=== PATIENT | female | born 1980 | race Caucasian/White ===

== ENCOUNTER 2017-10-05 16:59 | Emergency (ER) | payer MEDICAID, MEDICARE ==
--- NOTE | 2017-10-05 17:18 | EDM.PDOC ---
ED HPI GENERAL MEDICAL PROBLEM - General Chief Complaint: Chest Pain Stated Complaint: CHEST PAIN Time Seen by Provider: 10/05/17 17:17 Source of Information: Reports: Patient History Limitations: Reports: No Limitations - History of Present Illness INITIAL COMMENTS - FREE TEXT/NARRATIVE: 37-year-old female presents to the ED with a 3 day history of central chest discomfort that seems to start in the pit of her stomach her epigastrium and radiated up into her throat feels this into her back as well. Pain is felt along the left and right costal margins anteriorly and radiates around to the back. He has had previous cholecystectomy. She states that initiating swallowing seems to hurt or eating seems to make the pain worse. He has no history of gastroesophageal reflux disease and is never uses Tums or Rolaids. Pain seems to been worse since starting an increased dose of her antidepressant medication--Pristiq ER. Recently this medication was increased from 50-100 mg extended release once daily at bedtime. She is also on amitriptyline 50 mg at bedtime. Both of these medications are known to decreased lower esophageal sphincter tone and can contribute to reflux disease. Patient is also on oral control. This patient at risk of potential thrombosis. She denies any leg pain. No recent long travel history. Patient has a history of asthma but never bad enough to need an inhaler. She denies cough or sputum production. No associated fever or chills. Her blood pressure is elevated with a diastolic of 105. The side effects of Pristiq is potential hypertension. Apparently her blood pressures been elevated for a significant period time but has not ever been addressed or treated. Pain is worsened by deep breathing. At present can't get a full deep breath. Onset: Gradual Onset Date: 10/02/17 Duration: Day(s):, Getting Worse Location: Reports: Chest (Feels a heaviness in her chest that seems to start in the pit of her stomach and radial into her neck and through to her mid back. Pain along both anterior costal margins into her back.) Quality: Reports: Pressure Severity: Moderate (Rates her current pain as a 7 out of 10.) Improves with: Reports: None Worsens with: Reports: Other (Deep breathing), Movement Context: Denies: Activity, Exercise, Sick Contact, Trauma, Other Associated Symptoms: Reports: Chest Pain, Loss of Appetite, Shortness of Breath. Denies: Confusion, Cough, cough w sputum (See history present illness) , Diaphoresis, Fever/Chills, Headaches, Malaise, Nausea/Vomiting, Rash, Seizure , Syncope, Weakness Treatments [employer]: Reports: Other (see below) (Only medications that she has been prescribed.) Chest Pain Score (Numeric/FACES): 7 - Related Data Allergies Allergy/AdvReac Type Severity Reaction Status Date / Time acetaminophen [From Vicodin] Allergy Hives Verified 10/05/17 17:11 hydrocodone [From Vicodin] Allergy Hives Verified 10/05/17 17:11 Sulfa (Sulfonamide Allergy Hives Verified 10/05/17 17:11 Antibiotics) Home Meds: Home Meds Amitriptyline [Elavil] 50 mg PO BEDTIME 10/05/17 [History] Desvenlafaxine [Desvenlafaxine ER] 100 mg PO BEDTIME 10/05/17 [History] Dicyclomine [Bentyl] 20 mg PO Q6H PRN #16 tablet 10/05/17 [Rx] Levomefolate Calcium [l-Methylfolate] 15 mg PO DAILY 10/05/17 [History] Omeprazole 20 mg PO BEDTIME #30 cap.sr 10/05/17 [Rx] Topiramate 25 mg PO BEDTIME 10/05/17 [History] Past Medical History Respiratory History: Reports: Asthma (Although not bad enough to ever need an inhaler for.) Psychiatric History: Reports: Depression, Other (See Below) (Insomnia) Endocrine/Metabolic History: Reports: Obesity/BMI 30+ - Past Surgical History GI Surgical History: Reports: Cholecystectomy (Done laparoscopically.) Social & Family History - Living Situation & Occupation Occupation: Unemployed [facility] - Review of Systems Review Of Systems: See Below Constitutional: Reports: Malaise, Weakness, Fatigue, Decreased Appetite. Denies : Fever, Chills, Weight Loss HEENT: Reports: No Symptoms Respiratory: Reports: Shortness of Breath. Denies: Wheezing, Pleuritic Chest Pain, Cough, Sputum, Hemoptysis Cardiovascular: Reports: Chest Pain, Blood Pressure Problem (As described in history of present illness depression has been notably elevated in the last several visits to the doctor but she has not been placed on medication yet.), Dyspnea on Exertion. Denies: Claudication, Edema, Lightheadedness, Orthopnea, Palpitations Endocrine: Reports: Fatigue GI/Abdominal: Reports: Abdominal Pain, Constipation, Difficulty Swallowing. Denies: Black Stool (Some pressure in the pit of her stomach and some odynophagia the last 2-3 days.), Bloody Stool, Diarrhea, Decreased Appetite, Distension, Flatus (Due to medication side effects), Hematemesis, Hematochezia, Melena, Other : Reports: No Symptoms Musculoskeletal: Reports: Back Pain (Chest pain radiates through to her mid back.) Skin: Reports: No Symptoms Neurological: Reports: No Symptoms Psychiatric: Reports: Depression, Mood Lability. Denies: Hallucinations, Homicidal Ideation, Suicidal Ideation Hematologic/Lymphatic: Reports: No Symptoms Immunologic: Reports: No Symptoms ED EXAM, GENERAL - Physical Exam Exam: See Below Exam Limited By: No Limitations General Appearance: Alert, WD/WN, Anxious (Mildly anxious.), Mild Distress Eye Exam: Bilateral Eye: Normal Fundi Throat/Mouth: Normal Inspection, Normal Oropharynx Head: Atraumatic, Normocephalic Neck: Normal Inspection, Supple, Non-Tender, Full Range of Motion. No: Carotid Bruit, Lymphadenopathy (L), Lymphadenopathy (R), Thyromegaly Respiratory/Chest: Normal Breath Sounds (Splinting respirations.), Respiratory Distress (Tachypnea at rest 26-30/m.), Decreased Breath Sounds (Breath sounds are diminished both lower lung orozco posteriorly due to size.), Splinting, Other (Does have chest wall pain particularly ribs 3 and 4 in the right side midclavicular line ribs 34 and 5 on the left side midclavicular line.). No: Rales, Rhonchi, Wheezing Cardiovascular: Normal Peripheral Pulses, Regular Rate, Rhythm, No Edema, No Gallop, No Murmur, No Rub Peripheral Pulses: 3+: Posterior Tibial (L), Posterior Tibial (R), Dorsalis Pedis (L), Dorsalis Pedis (R) GI/Abdominal: Normal Bowel Sounds, Soft, Non-Tender, No Organomegaly, No Distention Back Exam: Normal Inspection, Full Range of Motion. No: CVA Tenderness (L), CVA Tenderness (R) Extremities: Normal Inspection, Normal Range of Motion, Non-Tender, No Pedal Edema, Other (Calves are nontender and flexible. No evidence clinically of DVT.) Neurological: Alert, Oriented, CN II-XII Intact, Normal Cognition Psychiatric: Anxious (Mildly anxious.), Flat Affect (Slightly flat affect.) Skin Exam: Warm, Dry, Intact, Normal Color, No Rash EKG INTERPRETATION EKG Date: 10/05/17 Time: 17:10 Rhythm: NSR Rate (Beats/Min): 90 [place]: RAD-Right [place] Deviation (Mild right ex deviation 93.) P-Wave: Present QRS: Normal ST-T: Normal QT: Normal EKG Interpretation Comments: Essentially normal ECG no signs of ischemia Course - Vital Signs Last Recorded V/S: Last Vital Signs Temp 36.7 C 10/05/17 17:00 Pulse 90 10/05/17 18:01 Resp 17 10/05/17 18:01 BP 157/105 H 10/05/17 18:01 Pulse Ox 98 10/05/17 18:01 - Orders/Labs/Meds Orders: Active Orders 24 hr Category Date Time Status EKG Documentation Completion [RC] STAT Care 10/05/17 17:24 Active Chest 1V Frontal [CR] Stat Exams 10/05/17 17:24 Taken Sodium Chloride 0.9% [Normal Saline] 1,000 ml Med 10/05/17 17:30 Active IV ASDIRECTED Medication Orders Sodium Chloride (Normal Saline) 1,000 mls @ 100 mls/hr IV ASDIRECTED VINEET Last Admin: 10/05/17 17:43 Dose: 100 mls/hr Labs: Laboratory Tests 10/05/17 10/05/17 10/05/17 Range/Units 17:35 17:35 17:35 WBC 11.06 H (3.98-10.04) K/mm3 RBC 4.72 (3.98-5.22) M/mm3 Hgb 13.8 (11.2-15.7) gm/L Hct 41.3 (34.1-44.9) % MCV 87.5 (79.4-94.8) fl MCH 29.2 (25.6-32.2) pg MCHC 33.4 (32.2-35.5) g/dl RDW Std Deviation 41.9 (36.4-46.3) fL Plt Count 278 (182-369) K/mm3 MPV 9.1 L (9.4-12.3) fl Neutrophils % (Manual) 61 H (40-60) % Band Neutrophils % 0 (0-10) % Lymphocytes % (Manual) 32 (20-40) % Atypical Lymphs % 0 % Monocytes % (Manual) 4 (2-10) % Eosinophils % (Manual) 3 (0.7-5.8) % Basophils % (Manual) 0 L (0.1-1.2) Platelet Estimate Adequate Plt Morphology Comment Normal RBC Morph Comment Normal D-Dimer, Quantitative 0.36 (0.19-0.50) mg/L Sodium 139 (136-145) mEq/L Potassium 3.8 (3.5-5.1) mEq/L Chloride 103 (98-107) mEq/L Carbon Dioxide 27 (21-32) mEq/L Anion Gap 12.8 (5-15) BUN 12 (7-18) mg/dL Creatinine 0.8 (0.55-1.02) mg/dL Est Cr Clr Drug Dosing 95.45 mL/min Estimated GFR (MDRD) > 60 (>60) mL/min BUN/Creatinine Ratio 15.0 (14-18) Glucose 108 H (74-106) mg/dL Calcium 9.2 (8.5-10.1) mg/dL Total Bilirubin 0.2 (0.2-1.0) mg/dL AST 10 L (15-37) U/L ALT 29 (14-59) U/L Alkaline Phosphatase 94 (46-116) U/L CK-MB (CK-2) 0.8 (0-3.6) ng/ml Troponin I < 0.017 (0.00-0.056) ng/mL C-Reactive Protein (<1.0) mg/dL Total Protein 7.2 (6.4-8.2) g/dl Albumin 3.4 (3.4-5.0) g/dl Globulin 3.8 gm/dL Albumin/Globulin Ratio 0.9 L (1-2) Lipase (73-393) U/L 10/05/17 Range/Units 17:35 WBC (3.98-10.04) K/mm3 RBC (3.98-5.22) M/mm3 Hgb (11.2-15.7) gm/L Hct (34.1-44.9) % MCV (79.4-94.8) fl MCH (25.6-32.2) pg MCHC (32.2-35.5) g/dl RDW Std Deviation (36.4-46.3) fL Plt Count (182-369) K/mm3 MPV (9.4-12.3) fl Neutrophils % (Manual) (40-60) % Band Neutrophils % (0-10) % Lymphocytes % (Manual) (20-40) % Atypical Lymphs % % Monocytes % (Manual) (2-10) % Eosinophils % (Manual) (0.7-5.8) % Basophils % (Manual) (0.1-1.2) Platelet Estimate Plt Morphology Comment RBC Morph Comment D-Dimer, Quantitative (0.19-0.50) mg/L Sodium (136-145) mEq/L Potassium (3.5-5.1) mEq/L Chloride (98-107) mEq/L Carbon Dioxide (21-32) mEq/L Anion Gap (5-15) BUN (7-18) mg/dL Creatinine (0.55-1.02) mg/dL Est Cr Clr Drug Dosing mL/min Estimated GFR (MDRD) (>60) mL/min BUN/Creatinine Ratio (14-18) Glucose (74-106) mg/dL Calcium (8.5-10.1) mg/dL Total Bilirubin (0.2-1.0) mg/dL AST (15-37) U/L ALT (14-59) U/L Alkaline Phosphatase (46-116) U/L CK-MB (CK-2) (0-3.6) ng/ml Troponin I (0.00-0.056) ng/mL C-Reactive Protein 0.4 (<1.0) mg/dL Total Protein (6.4-8.2) g/dl Albumin (3.4-5.0) g/dl Globulin gm/dL Albumin/Globulin Ratio (1-2) Lipase 123 (73-393) U/L Meds: Medications Generic Name Dose Route Start Last Admin Trade Name Freq PRN Reason Stop Dose Admin Sodium Chloride 1,000 mls @ 100 mls/hr 10/05/17 17:30 10/05/17 17:43 Normal Saline IV 100 mls/hr ASDIRECTED VINEET Administration Discontinued Medications Generic Name Dose Route Start Last Admin Trade Name Freq PRN Reason Stop Dose Admin Al Hydroxide/Mg Hydroxide 30 0 ml 10/05/17 17:27 10/05/17 17:44 ml/ Lidocaine HCl 15 ml PO 10/05/17 17:28 45 ml ONETIME ONE Administration Diphenhydramine HCl 25 mg 10/05/17 17:51 10/05/17 17:56 Benadryl IVPUSH 10/05/17 17:52 25 mg ONETIME ONE Administration Hydromorphone HCl 0.5 mg 10/05/17 18:40 10/05/17 18:45 Dilaudid IVPUSH 10/05/17 18:41 0.5 mg ONETIME ONE Administration Hyoscyamine 0.125 mg 10/05/17 17:27 10/05/17 17:47 Hyomax-Sl SL 10/05/17 17:28 0.125 mg ONETIME ONE Administration Lorazepam 1 mg 10/05/17 17:51 10/05/17 17:58 Ativan IVPUSH 10/05/17 17:52 1 mg ONETIME ONE Administration Ondansetron HCl 4 mg 10/05/17 18:40 10/05/17 18:50 Zofran IVPUSH 10/05/17 18:41 4 mg ONETIME ONE Administration - Radiology Interpretation Free Text/Narrative:: 37-year-old female presents to the ED with a three-day history of central chest pressure discomfort which makes it hard to swallow and hard to fully take a deep breath. Pain seems to start in the epigastrium radiating up through to her throat and neck. It also radiates through to the back. She feels along both anterior costal margins and her back. This would be strongly suggestive of hiatal hernia caused pain. She is not aware of any gastroesophageal reflux never has to use Tums or Rolaids. Several rib medications however would relax the lower esophageal sphincter contributed to free reflux even though she may not be aware of it. She does have a component of odynophagia --recognizes that eating seems to make the pain somewhat worse. Does have bilateral chest wall pain midclavicular line ribs 3 and 4 and 5 on the left ribs 3 and 4 on the right on palpation. Has had a previous cholecystectomy. Does not smoke cigarettes. ECG shows negative normal sinus rhythm at 90/m with no signs of ischemia. There is a borderline right axis deviation 93. I will start with a left-sided under the tongue to see if this relieves her discomfort. After that she will have a GI cocktail and then we will reassess. IV will be started at 100 mils per hour. Normal saline. Routine labs including a d-dimer and troponin CK-MB fraction will be obtained. Also serum lipase. Strongly suspect that her current chest pain is likely GI in origin i.e. either esophageal or hiatal hernia related. One view chest x-ray will be obtained. - Re-Assessments/Exams Free Text/Narrative Re-Assessment/Exam: 10/05/17 17:52 patient feels that her throat is closing up and not after the GI cocktail. He is increasingly showing more signs of anxiety. Will give Benadryl 25 mg IV with Ativan 1 mg IV. A pressure remains elevated at 157/105. Heart remains 90 in sinus. 10/05/17 18:13 one view portable chest x-ray is been completed. Cardiac silhouette is normal. Does seem to be some prominence of the right perihilar area and a slight streaky infiltrate right lower lobe. No other chest x-rays for comparison purposes. 10/05/17 18:36 Labs are back. Total white count is slightly elevated at 11.06 with 61% neutrophils and no bands reported. Hemoglobin is 13.8 with hematocrit of 41.3. MCV is normal at 87.5. Platelets are normal 278,000. D-dimer is 0.36 well within normal limits. Sodium is 139 with a potassium of 3.8. Chloride is 103 with a bicarbonate of 27. Anion gap is normal at 12.8. BUNs 12 with a creatinine of 0.8. Liver function is normal. Lipase normal at 123. Troponin I is less than 0.017 with a CK-MB fraction 0.8. No evidence of heart related illness. Reexamined the patient as she did get temporary relief of the pain after the GI cocktail but she felt quite awkward in her ability to talk and swallow as it numbed up her voice box and hypopharynx. Pain is still quite significant in her anterior chest wall particularly ribs 34 on the right side. She indicates that every time she eats pain seems to radiate along the right costal margin into her right chest and back. Pain is also retrosternal. She recognizes it seems to worsen with eating. These are all signs and symptoms of likely hiatal hernia. Associated with bilateral chest wall pain. This makes it hard to treat as her chest wall is inflamed fairly significantly on palpation. NSAIDs which are usually used to treat this may make her reflux and hiatal hernia pain worse. Going to try a small dose of Dilaudid to see if it alleviates her chest wall pain and hiatal hernia pain. Also give Zofran 4 mg IV to prevent any nausea or vomiting from the Dilaudid. 10/05/17 19:02 did get some relief of the chest pain and able to take a deeper breath after Dilaudid 0.5 mg IV. BP is markedly improved to 118/62 with a heart rate of 66. This suggests that the initial hypertension we scene was anxiety related. She is much less anxious now than she was on upon arrival especially learning that nothing serious was identified on investigation. Still strongly suspect she has a hiatal hernia. He often awakens during the night with chest discomfort or abdominal discomfort. We discussed a diet that would include no soda pop to avoid carbon dioxide aggravating hiatal hernia and gas-forming foods such as onions, cauliflower, cucumbers, broccoli etc. I'm going to place her on Bentyl 20 mg every 6 hours until this pain abates. Also I will place her on Prilosec 20 mg once daily at bedtime at least for a month as I suspect she is refluxing without symptoms. If symptoms persist she's going to need follow- up in terms of upper GI endoscopy to identify if she has a significant hiatal hernia. Stress use of her bra which is under wire bra is likely contributing to chest wall pain bilaterally. Did double sports positive available to her to provide support without any pressure on her chest wall. Recommended either Aleve 2 tablets every 8 hours or ibuprofen 600 mg every 6 hours needed for relief of chest wall pain. Departure - Departure Time of Disposition: 19:05 Disposition: Home, Self-Care 01 Condition: Fair Clinical Impression: Anterior chest wall pain, Chest pain, central, Non-cardiac chest pain, Hiatal hernia Prescriptions: Dicyclomine [Bentyl] 20 mg PO Q6H PRN #16 tablet PRN Reason: Abdominal cramps/diarrhea Omeprazole 20 mg PO BEDTIME #30 cap.sr Referrals: PCP,None [Primary Care Provider] - Forms: ED Department Discharge Additional Instructions: Evaluation in the emergency department in regards to central chest pain radiating up into her throat as well as bilateral chest wall pain identified to be involving ribs 3 and 4 on the right and 34 and 5 on the left side of your chest. As you discussed the pain is in the distribution of your bra. The chest wall pain is due to inflammation of the lining around the ribs. It may simply be due to the brassiere itself or the heaviness of breasts pulling down on the chest wall., But you also have central chest discomfort which made it difficult for take a full deep breath that radiates into her back. This 6 characteristic of hiatal hernia type pain where your stomach is slipping up into your chest stretching the opening where the food pipe posterior the diaphragm to your abdomen. I believe this is causing the majority of your current central chest discomfort with associated chest wall discomfort. You did receive initial improvement with upper GI cocktail but it gave you a sense of suffocation and throat closure. This is due to the numbing effect of the medication. This provided transient relief of your chest discomfort which suggested that it is indeed the food pipe and stomach that is creating the central chest discomfort. All of the investigations from through the ED today were normal. There is no evidence of any heart related illness and no blood clots in the lung. Also in the abdomen the liver function was normal pancreas is normal with no inflammation identified. You're treated with a small dose of Dilaudid 0.5 mg with Zofran 4 mg to relieve chest wall pain and also should help relax the juncture of the food pipe and stomach. Treatment at home is nothing to eat much for at least 3 hours before bed or lying down. Suggest use of omeprazole 20 mg every night at bedtime for the next 30 days to reduce the acid in your stomach and prevent reflux of acid during the night when you're sleeping which you may not be aware of that may be aggravating her irritating the lining of the food pipe causing spasm. May use Bentyl 20 mg every 6 hours needed for relief of the central chest pain until it's gone and then use it only as needed for recurrence of from similar type pain. In regards to the chest wall pain I would suggest Aleve 2 tablets every 8 hours or ibuprofen 600 mg every 6 hours to relieve pain and inflammation for the next week or so. As we discussed avoiding soda pop due to carbon dioxide which causes the stomach to be more likely to herniated up into the chest cavity. Also gas-forming foods such as cauliflower, broccoli, onions, cucumbers, and radishes. You can still have these vegetables but in small quantities at a time so as not to aggravate extra gas formation of the stomach. If symptoms persist then I would suggest follow-up with a upper GI specialist such as Dr. Perea at [facility] in [facility]. He specializes in hiatal hernia repair and stomach surgery - My Orders Last 24 Hours: My Active Orders 10/05/17 17:24 EKG Documentation Completion [RC] STAT Chest 1V Frontal [CR] Stat 10/05/17 17:30 Sodium Chloride 0.9% [Normal Saline] 1,000 ml IV ASDIRECTED - Assessment/Plan Last 24 Hours: My Active Orders 10/05/17 17:24 EKG Documentation Completion [RC] STAT Chest 1V Frontal [CR] Stat 10/05/17 17:30 Sodium Chloride 0.9% [Normal Saline] 1,000 ml IV ASDIRECTED
[2017-10-05] MEDS ORDERED: Hyoscyamine 0.125 MG Tab.SL SL ONE (17:27)
[2017-10-05] MEDS ORDERED: Alum Hydrox/Mag Hydrox/Simeth 30 ML, Lidocaine 2% 15 ML PO ONE ×2 (17:27)
[2017-10-05] MEDS ORDERED: Sodium Chloride 0.9% 1,000 ML IV SCH (17:30)
[2017-10-05] MEDS ORDERED: LORazepam 2 MG/ML SDV IVPUSH ONE (17:51)
[2017-10-05] MEDS ORDERED: diphenhydrAMINE 50 MG/ML SDV IVPUSH ONE (17:51)
[2017-10-05] MEDS ORDERED: Ondansetron 4 MG/2 ML SDV IVPUSH ONE (18:40)
[2017-10-05] MEDS ORDERED: HYDROmorphone 0.5 MG/0.5 ML SYRINGE IVPUSH ONE (18:40)
--- NOTE | 2017-10-06 14:26 | CR ---
Chest: Portable view of the chest was obtained. Comparison: No prior chest x-ray. Heart size and mediastinum are normal. Lungs are clear. Bony structures are grossly intact. Impression: 1. Nothing acute is identified on portable chest x-ray. Diagnostic code #1
== END 2017-10-05 19:36 | disposition home or self-care (01) ==
LOC: JD.ED 16:59
DX: K44.9 Diaphragmatic hernia without obstruction or gangrene (principal); J45.909 Unspecified asthma, uncomplicated; F32.9 Major depressive disorder, single episode, unspecified; E66.9 Obesity, unspecified; Z88.2 Allergy status to sulfonamides; Z88.5 Allergy status to narcotic agent; Z79.899 Other long term (current) drug therapy; Z88.6 Allergy status to analgesic agent; Z68.36 Body mass index [BMI] 36.0-36.9, adult
CPT/HCPCS: 36415; 71045; 80053; 82553; 83690; 84484; 85025; 85379; 86140; 93005; 96361; 96374; 96375; 99285; A9270; J1170; J1200; J2060; J2405; J7040; 93010; 99284-25

== ENCOUNTER 2018-02-07 20:31 | Emergency (ER) | payer MEDICARE, MEDICAID ==
[2018-02-07] MEDS ORDERED: Acetaminophen 325 MG Tab PO ONE (22:25)
[2018-02-07] MEDS ORDERED: traMADol 50 MG Tab PO ONE (23:17)
--- NOTE | 2018-02-07 23:56 | EDM.PDOC ---
ED HPI GENERAL MEDICAL PROBLEM - General Chief Complaint: Chest Pain Stated Complaint: CHEST PAINS Time Seen by Provider: 02/07/18 21:05 - History of Present Illness INITIAL COMMENTS - FREE TEXT/NARRATIVE: see dictated documentation Treatments HARDWARE TRAINER: Reports: Other (see below) Other Treatments HARDWARE TRAINER: prilosec Middle Chest Pain Score (Numeric/FACES): 6 - Related Data Allergies Allergy/AdvReac Type Severity Reaction Status Date / Time acetaminophen [From Vicodin] Allergy Hives Verified 10/05/17 17:11 hydrocodone [From Vicodin] Allergy Hives Verified 10/05/17 17:11 Sulfa (Sulfonamide Allergy Hives Verified 10/05/17 17:11 Antibiotics) Home Meds: Home Meds Amitriptyline [Elavil] 75 mg PO BEDTIME 02/07/18 [History] Dextroamphetamine/Amphetamine [Adderall] 20 mg PO DAILY 02/07/18 [History] Divalproex Sodium [Depakote] 250 mg PO BID 02/07/18 [History] Folic Acid 15 mg PO DAILY 02/07/18 [History] Omeprazole Magnesium [Prilosec Otc] 20 mg PO DAILY 02/07/18 [History] Topiramate 100 mg PO BEDTIME 02/07/18 [History] Past Medical History HEENT History: Reports: Impaired Vision Other HEENT History: wears eyeglasses Cardiovascular History: Reports: Hypertension Respiratory History: Reports: Asthma Gastrointestinal History: Reports: Hiatal Hernia PICKER TENDER History: Reports: Neurological History: Reports: Concussion Psychiatric History: Reports: Depression, Other (See Below) Endocrine/Metabolic History: Reports: Obesity/BMI 30+ Oncologic (Cancer) History: Reports: Other (See Below) Other Oncologic History: states had "pre-cervical" cancer. - Infectious Disease History Infectious Disease History: Reports: Chicken Pox - Past Surgical History GI Surgical History: Reports: Cholecystectomy Female Surgical History: Reports: Tubal Ligation Social & Family History - Tobacco Use Smoking Status *Q: Current Every Day Smoker Years of Tobacco use: 18 Packs/Tins Daily: 0.2 - Caffeine Use Caffeine Use: Reports: None - Recreational Drug Use Recreational Drug Use: No - Living Situation & Occupation Occupation: Unemployed ED ROS GENERAL - Review of Systems Review Of Systems: ROS reveals no pertinent complaints other than HPI. ED EXAM, GI/ABD - Physical Exam Exam: See Below Course - Vital Signs Last Recorded V/S: Last Vital Signs Temp 36.7 C 02/07/18 20:52 Pulse 97 02/07/18 20:52 Resp 20 02/07/18 20:52 BP 140/84 02/07/18 20:52 Pulse Ox 96 02/07/18 20:52 - Orders/Labs/Meds Orders: Active Orders 24 hr Category Date Time Status EKG Documentation Completion [RC] ASDIRECTED Care 02/07/18 22:18 Active CXR [Chest 2V] [CR] Stat Exams 02/07/18 22:17 Taken EKG 12 Lead [EK] Stat Ther 02/07/18 22:18 Ordered Labs: Laboratory Tests 02/07/18 Range/Units 22:30 Troponin I < 0.017 (0.00-0.056) ng/mL Meds: Medications Discontinued Medications Generic Name Dose Route Start Last Admin Trade Name Freq PRN Reason Stop Dose Admin Acetaminophen 975 mg 02/07/18 22:25 02/07/18 22:34 Tylenol PO 02/07/18 22:26 975 mg NOW ONE Administration Tramadol HCl 50 mg 02/07/18 23:17 02/07/18 23:44 Ultram PO 02/07/18 23:18 50 mg ONETIME ONE Administration Departure - Departure Time of Disposition: 23:54 Disposition: Home, Self-Care 01 Clinical Impression: GERD (gastroesophageal reflux disease) Qualifiers: Esophagitis presence: esophagitis presence not specified Qualified Code(s): K21.9 - Gastro-esophageal reflux disease without esophagitis - Discharge Information *PRESCRIPTION DRUG MONITORING PROGRAM REVIEWED*: Not Applicable *COPY OF PRESCRIPTION DRUG MONITORING REPORT IN PATIENT JENNIFER: Not Applicable Instructions: Food Choices for Gastroesophageal Reflux Disease, Adult Referrals: Laurence Vargas ORIENTOR [Primary Care Provider] - Additional Instructions: Followup with your provider regarding reflux and hiatal hernia. - My Orders Last 24 Hours: My Active Orders 02/07/18 22:17 CXR [Chest 2V] [CR] Stat 02/07/18 22:18 EKG Documentation Completion [RC] ASDIRECTED EKG 12 Lead [EK] Stat - Assessment/Plan Last 24 Hours: My Active Orders 02/07/18 22:17 CXR [Chest 2V] [CR] Stat 02/07/18 22:18 EKG Documentation Completion [RC] ASDIRECTED EKG 12 Lead [EK] Stat
--- NOTE | 2018-02-08 01:35 | ER ---
REASON FOR EMERGENCY ROOM ADMISSION: Epigastric and lower substernal chest pain with heartburn. HISTORY OF PRESENT ILLNESS: This 37-year-old woman was driving home from [employer] when she began to experience a pressure sensation and heartburn as well as pain that radiated along her right chest below the bra line. The pain increased after eating. The pain has been like this before after she has eaten large meals. She felt tightness with this and a severe heartburn type sensation. She had been in the emergency department in September with a very similar episode of chest discomfort, but there was more pain in that case. At that time, she had pain in the epigastrium that penetrated through, it radiated up into her neck, and again radiated around both costal margins. She related the fact that eating larger meals tended to make it worse. Indeed that is the case with her now. She did have a fairly thorough cardiac workup at that time and a D-dimer was also done. All these were negative. They were left with a diagnosis of gastroesophageal reflux disease. She was started on omeprazole. There were arrangements made to have her follow up and undergo an endoscopy and there has been some discussion apparently with her primary care provider regarding the possibility of surgery, but I am not aware that they have actually documented this in terms of an upper GI study or endoscopically. She does not give a history of exertional chest pain. She has not had any episodes of pain upper jaw, down her arm. She denies any diaphoresis with these episodes of pain. On careful questioning, she states that the smaller and frequent meals have lessened her symptoms until this evening's episode. She does state that there have been times in the past where she has had water brash as well as reflux type symptoms in the middle of the night after eating large meals. For this reason, she tends not to eat after 6 p.m. She has tried to elevate the head of her bed. She denies any real shortness of breath with this. PAST MEDICAL HISTORY: Significant for an inguinal hernia at the age of 18, cholecystectomy at age 26. She had a tubal ligation last year. She has a history of ADHD, anxiety, and depression. SOCIAL HISTORY: She is a smoker, and she is with 2 children. FAMILY HISTORY: Her father did pass away from complications of diabetes and congestive heart failure. He also had kidney disease. Her mother is alive and well. She has 3 brothers who are healthy apart from 1 brother who has a learning disability. CURRENT MEDICATIONS: Her medications were reviewed. See EMR. They include amphetamine for ADHD, omeprazole 1 tablet daily, amitriptyline, and Depakote. ALLERGIES: Acetaminophen, hydrocodone, and sulfa. REVIEW OF SYSTEMS: Pertinent positives and negatives as listed in HPI. PHYSICAL EXAMINATION: VITAL SIGNS: She is afebrile. Heart rate is 97, blood pressure 140/84, respiratory rate is 20, O2 sats 96 on room air. HEENT: No scleral icterus is noted. Oropharynx is normal. NECK: Supple. No adenopathy. No JVD. Trachea is midline. CHEST: Nontender. Clear to auscultation. No wheezes, rhonchi, or rales. Normal air exchange bilaterally. CARDIAC: Regular rate without murmur. No rub is heard. ABDOMEN: Obese and nontender. Soft. There is no guarding, rebound, organomegaly. No palpable masses were noted. LABORATORY: Her troponin is less than 0.017. Her chest x-ray shows no active pulmonary disease. I do not see an air-fluid level in the retrocardiac area. Her EKG does not show any acute changes. IMPRESSION: Reflux symptoms secondary to gastroesophageal reflux disease. PLAN: A long detailed discussion was undertaken and we reviewed the general supportive measures in cases of GE reflux including weight reduction, small frequent feedings, elevation of the head of bed, and avoiding tight-fitting garments. I told her she should double her omeprazole to 1 tablet in the morning and 1 tablet in the evening right before she eats her evening meal. She should follow up with her provider to see if this should be worked up more including endoscopy and so forth. All questions were answered. They understand and agree with this plan. MMODAL /[id number]
== END 2018-02-08 00:15 | disposition home or self-care (01) ==
LOC: JD.ED 20:31
DX: K21.9 Gastro-esophageal reflux disease without esophagitis (principal); Z88.8 Allergy status to other drugs, medicaments and biological substances; Z88.2 Allergy status to sulfonamides
CPT/HCPCS: 36415; 71046; 84484; 93005; 99285; A9270